=== PATIENT | male | born 1995 | race Caucasian/White ===

== ENCOUNTER 2017-10-07 16:08 | Emergency (ER) | payer OTHER ==
[~2017-10-07] VITALS: Ht 154.9 cm; Wt 49.9 kg
[2017-10-07 16:10] VITALS: BP_SYST 114
--- NOTE | 2017-10-07 17:02 | NUR ---
Patient to ER bed 7 to gown for evaluation. Side rails up. Report given to David ABRAHAM.
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
--- NOTE | 2017-10-07 17:10 | NUR ---
BARRETT Salazar at bedside to assess pt.
--- NOTE | 2017-10-07 17:35 | NUR ---
Right ulnar/gutter splint applied, non-constrictively, cap refil < 3 sec to nail beds of RHA.
[2017-10-07 17:48] VITALS: BP_SYST 112
--- NOTE | 2017-10-07 17:48 | NUR ---
Patient given written and verbal discharge instructions and verbalizes understanding. ER MD discussed with patient the results and treatment provided. Patient in stable condition. ID arm band removed. Rx of [place], Motrin, Bacitracin given. Patient educated on pain management and to follow up with PMD. Pain Scale 2/10. Opportunity for questions provided and answered.
--- NOTE | 2017-10-07 17:48 | NUR ---
Pt left prior to being medicated with [place].
[2017-10-07] MEDS: HYDROcodone/ACETAMIN 7.5-325 MG TAB PO ONE (18:29)
[2017-10-07] MEDS: BACITRACIN 1 GM OINT TP ONE (18:30)
== END 2017-10-07 17:48 | disposition home or self-care (01) ==
LOC: SED 16:08
DX: S62.336A Displaced fracture of neck of fifth metacarpal bone, right hand, initial encounter for closed fracture (principal); S50.811A Abrasion of right forearm, initial encounter; S80.211A Abrasion, right knee, initial encounter; Z88.0 Allergy status to penicillin; V87.8XXA Person injured in other specified noncollision transport accidents involving motor vehicle (traffic), initial encounter; Y93.55 Activity, bike riding; Y92.410 Unspecified street and highway as the place of occurrence of the external cause; Y99.8 Other external cause status
CPT/HCPCS: 99284

== ENCOUNTER 2022-03-06 12:16 | Emergency (ER) | payer SELFPAY ==
[~2022-03-06] VITALS: Ht 154.9 cm; Wt 59.0 kg
[2022-03-06 13:06] VITALS: BP_SYST 132
--- NOTE | 2022-03-06 18:00 | NUR ---
Patient to hallway bed 2 for evaluation. Side rails up. Report received from [place].
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
[2022-03-06] MEDS ORDERED: DIPH-TET-PERTUS Vaccine 0.5 ML VIAL (ADACEL) I.M. ONE (18:15)
[2022-03-06] MEDS ORDERED: LIDOCAINE 1% 10 MG/ML, 20 ML MDV INJ ONE (18:15)
--- NOTE | 2022-03-06 18:30 | NUR ---
ER Dr. De Oliveira at bedside examining patient.
--- NOTE | 2022-03-06 18:58 | NUR ---
Patient given written and verbal discharge instructions and verbalizes understanding. ER MD discussed with patient the results and treatment provided. Patient in stable condition. ID arm band removed. Patient educated on pain management and to follow up with PMD. Pain Scale 4/10. Opportunity for questions provided and answered. Medication side effect fact sheet provided.
== END 2022-03-06 18:56 | disposition home or self-care (01) ==
LOC: SED 12:16
DX: S01.01XA Laceration without foreign body of scalp, initial encounter (principal); W22.8XXA Striking against or struck by other objects, initial encounter; Y93.89 Activity, other specified; Y92.89 Other specified places as the place of occurrence of the external cause; Y99.8 Other external cause status
CPT/HCPCS: 12002; 90471; 90715; 99283; J2001